=== PATIENT | male | born 1975 | race Caucasian/White ===

== ENCOUNTER 2017-10-06 12:25 | Emergency (ER) | payer BC ==
[2017-10-06 14:00] VITALS: BP 116/50
--- NOTE | 2017-10-06 14:00 | UC ---
Throat Pain/Nasal Jarvis HPI - HPI Summary HPI Summary: 41 YO M C/O SINUS CONGESTION AND PRESSURE FOR 2 WEEKS. WORSE ON THE LEFT. SOME LEFT EAR PRESSURE ALSO. YELLOW RHINORRHEA. NO FEVER. NO CHEST CONGESTION. - History of Current Complaint Chief Complaint: UCRespiratory Stated Complaint: SINUS PRESSURE Time Seen by Provider: 10/06/17 13:49 Hx Obtained From: Patient Onset/Duration: Gradual Onset, Lasting Weeks Severity: Moderate Cough: Nonproductive Associated Signs & Symptoms: Negative: Wheezing - Epiglottits Risk Factors Epiglottis Risk Factors: Negative - Allergies/Home Medications Allergies/Adverse Reactions: Allergies Allergy/AdvReac Type Severity Reaction Status Date / Time No Known Allergies Allergy Verified 10/06/17 14:00 PMH/Surg Hx/FS Hx/Imm Hx Previously Healthy: Yes Other Endocrine History: NO DM Other Cardiovascular History: NO HTN - Family History Known Family History: Positive: Cardiac Disease Family History: HX LACERATIONS - Social History Occupation: Employed Full-time Smoking Status (MU): Never Smoked Tobacco Review of Systems Constitutional: Negative Skin: Negative Eyes: Negative ENT: Ear Ache, Nasal Discharge, Sinus Congestion, Sinus Pain/Tenderness Respiratory: Negative Cardiovascular: Negative Gastrointestinal: Negative Genitourinary: Negative Motor: Negative Neurovascular: Negative Musculoskeletal: Negative Neurological: Other - OCCATIONAL DIZZINESS WITH HEAD TURNING Psychological: Negative Is Patient Immunocompromised?: No All Other Systems Reviewed And Are Negative: Yes Physical Exam Triage Information Reviewed: Yes Appearance: Well-Appearing, No Pain Distress, Well-Nourished Vital Signs Reviewed: Yes Eye Exam: Normal Eyes: Positive: Conjunctiva Clear ENT: Positive: Pharyngeal erythema, Nasal congestion, Nasal drainage, TMs normal , Sinus tenderness Neck: Positive: Supple, Nontender Respiratory: Positive: Lungs clear, Normal breath sounds, No respiratory distress Cardiovascular: Positive: RRR Musculoskeletal Exam: Normal Neurological Exam: Normal Psychological Exam: Normal Skin Exam: Normal Throat Pain/Nasal Course/Dx - Differential Dx/Diagnosis Provider Diagnoses: SINUSITIS Discharge - Sign-Out/Discharge Documenting (check all that apply): Patient Departure - Discharge Plan Condition: Stable Disposition: HOME Prescriptions: Amoxicillin/Clavulanate TAB* [Augmentin TAB 875*] 875 mg PO BID #20 tab Patient Education Materials: Sinusitis (ED) Referrals: [facility] [Outside] Additional Instructions: FOLLOW UP WITH YOUR DOCTOR IF NOT COMPLETELY IMPROVED. GET RECHECKED FOR ANY WORSENING OF YOUR CONDITION OR QUESTIONS OR CONCERNS. - Billing Disposition and Condition Condition: STABLE Disposition: Home
== END 2017-10-06 14:05 | disposition home or self-care (01) ==
LOC: UCCORT 12:25
DX: J32.9 Chronic sinusitis, unspecified (principal)
CPT/HCPCS: 99202; G0463